=== PATIENT | male | born 1995 | race Two or more races ===

== ENCOUNTER 2017-12-28 16:33 | Emergency (ER) | payer OTHER ==
[~2017-12-28 16:33] MED LIST: ALBU8.5H12 IH; CIPHCO OS; HYDR1TAB PO; NO ROUTINE MEDS; NO RTN MEDS; TRIA15CR40 TP
[2017-12-28] MEDS ORDERED: OXYC-865 PO (16:39)
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
[2017-12-28] MEDS ORDERED: NS(*) 0.9% 1000 ML BAG 1,000 ML IV ONE (17:20)
[2017-12-28 17:47] LABS: PLATELET COUNT, AUTOMATED 217 K/uL (150-450)
[2017-12-28 17:56] LABS: INR 1.12
--- NOTE | 2017-12-28 19:13 | RADIOLOGY IMAGING REPORT ---
FACILITY: [facility] - [place] PATIENT NAME: Roger Chirinos : 1995 MR: [id number] V: [id number] EXAM DATE: ORDERING PHYSICIAN: MANUEL PAIGE TECHNOLOGIST: Location: [facility] - [place] Patient: Roger Chirinos : 1995 Visit/Account:[id number] Date of Sevice: 12/28/2017 CT Head without contrast and CT facial bones Indication: Headache. History of brain should face on 12/10/2017. Comparison: None available Technique: CT head: Axial CT images were obtained through the brain from the skull base to the verte x without administration of IV contrast. Reformatted coronal and sagittal images were also obtained. Technique: CT facial bones: Axial CT images are obtained through the facial bones. Reformatted vega l and sagittal images were reviewed. One of the following dose optimization techniques was utilized in the performance of this exam: autom ated exposure control; adjustment of the mA and/or kV according to the patient's size; or use of an i terative reconstruction technique. Specific details can be referenced in the facility's radiology CT exam operational policy. FINDINGS: CT head: No intracranial bleed, midline shift, mass affect, extra axial fluid collection or hydrocephalus. No abnormal density. Nuñez/white matter differentiation appears normal. There is nondisplaced fracture of the right and left nasal bone and the anterior medial left maxillary sinus. There is some fluid and mucosal thickening seen in the left maxillary sinus. No other discrete fractures. There is mucosal th ickening seen in the rest of the sinuses. Mastoid air cells are clear. CT facial bones: There is a nondisplaced fracture of the bilateral nasal bone. There is also nondisplaced fracture the anterior medial aspect of the left maxillary sinus. This appears to extend up to the anterior inferi or left orbital wall which shows minimally depressed fracture without appreciable herniation. The fra cture also extends to the posterior lateral aspect of the left maxillary sinus. No other discrete fra ctures. No bony lesions. Temporomandibular joints are intact and symmetric. The left maxilla sinus do es show fluid and mucosal thickening. The remaining sinuses do show some mucosal thickening as well. The mastoid air cells are clear. The right orbit is intact. The soft tissues of the orbits are symmet christopher without focal abnormality. Both ostiomeatal complexes are obscured by the mucosal thickening. The surrounding soft tissues are unremarkable. IMPRESSION: 1. No acute intracranial abnormality. 2. Nondisplaced fracture of the bilateral nasal bone. There is also nondisplaced fracture the anterio r medial aspect of the left maxillary sinus. This appears to extend up to the anterior inferior left orbital wall which shows minimally depressed fracture without appreciable herniation. The fracture al so extends to the posterior lateral aspect of the left maxillary sinus. 3. Sinus disease. There is also some fluid in the left maxillary sinus most likely from the fractures . CT Cervical Spine Indication: Trauma to face. 3 branch of the face. Comparison: None available. Technique: Axial CT imaging of the cervical spine was performed. 2-D sagittal and coronal CT reforma ts were also obtained. One of the following dose optimization techniques was utilized in the performance of this exam: autom ated exposure control; adjustment of the mA and/or kV according to the patient's size; or use of an i terative reconstruction technique. Specific details can be referenced in the facility's radiology CT exam operational policy. Findings: The vertebral bodies are aligned. No fracture or facet dislocation. No bony lesions or degenerative c hanges. Endplates are maintained. No obvious disc herniation. Prevertebral soft tissues and surroundi ng soft tissues are unremarkable. Lung apices are clear. Impression: 1. No acute osseous or acute alignment abnormality of the cervical spine Report Dictated By: Adalberto Gil at 12/28/2017 6:54 PM Report E Signed By: Adalberto Gil at 12/28/2017 7:07 PM WSN:[id number]
--- NOTE | 2017-12-28 19:13 | RADIOLOGY IMAGING REPORT ---
FACILITY: [facility] PATIENT NAME: Roger Chirinos : 1995 MR: [id number] V: [id number] EXAM DATE: ORDERING PHYSICIAN: MANUEL PAIGE TECHNOLOGIST: Location: [facility] Patient: Roger Chirinos : 1995 Visit/Account:[id number] Date of Sevice: 12/28/2017 CT Head without contrast and CT facial bones Indication: Headache. History of brain should face on 12/10/2017. Comparison: None available Technique: CT head: Axial CT images were obtained through the brain from the skull base to the verte x without administration of IV contrast. Reformatted coronal and sagittal images were also obtained. Technique: CT facial bones: Axial CT images are obtained through the facial bones. Reformatted vega l and sagittal images were reviewed. One of the following dose optimization techniques was utilized in the performance of this exam: autom ated exposure control; adjustment of the mA and/or kV according to the patient's size; or use of an i terative reconstruction technique. Specific details can be referenced in the facility's radiology CT exam operational policy. FINDINGS: CT head: No intracranial bleed, midline shift, mass affect, extra axial fluid collection or hydrocephalus. No abnormal density. Nuñez/white matter differentiation appears normal. There is nondisplaced fracture of the right and left nasal bone and the anterior medial left maxillary sinus. There is some fluid and mucosal thickening seen in the left maxillary sinus. No other discrete fractures. There is mucosal th ickening seen in the rest of the sinuses. Mastoid air cells are clear. CT facial bones: There is a nondisplaced fracture of the bilateral nasal bone. There is also nondisplaced fracture the anterior medial aspect of the left maxillary sinus. This appears to extend up to the anterior inferi or left orbital wall which shows minimally depressed fracture without appreciable herniation. The fra cture also extends to the posterior lateral aspect of the left maxillary sinus. No other discrete fra ctures. No bony lesions. Temporomandibular joints are intact and symmetric. The left maxilla sinus do es show fluid and mucosal thickening. The remaining sinuses do show some mucosal thickening as well. The mastoid air cells are clear. The right orbit is intact. The soft tissues of the orbits are symmet christopher without focal abnormality. Both ostiomeatal complexes are obscured by the mucosal thickening. The surrounding soft tissues are unremarkable. IMPRESSION: 1. No acute intracranial abnormality. 2. Nondisplaced fracture of the bilateral nasal bone. There is also nondisplaced fracture the anterio r medial aspect of the left maxillary sinus. This appears to extend up to the anterior inferior left orbital wall which shows minimally depressed fracture without appreciable herniation. The fracture al so extends to the posterior lateral aspect of the left maxillary sinus. 3. Sinus disease. There is also some fluid in the left maxillary sinus most likely from the fractures . CT Cervical Spine Indication: Trauma to face. 3 branch of the face. Comparison: None available. Technique: Axial CT imaging of the cervical spine was performed. 2-D sagittal and coronal CT reforma ts were also obtained. One of the following dose optimization techniques was utilized in the performance of this exam: autom ated exposure control; adjustment of the mA and/or kV according to the patient's size; or use of an i terative reconstruction technique. Specific details can be referenced in the facility's radiology CT exam operational policy. Findings: The vertebral bodies are aligned. No fracture or facet dislocation. No bony lesions or degenerative c hanges. Endplates are maintained. No obvious disc herniation. Prevertebral soft tissues and surroundi ng soft tissues are unremarkable. Lung apices are clear. Impression: 1. No acute osseous or acute alignment abnormality of the cervical spine Report Dictated By: Adalberto Gil at 12/28/2017 6:54 PM Report E Signed By: Adalberto Gil at 12/28/2017 7:07 PM WSN:[id number]
--- NOTE | 2017-12-28 19:14 | RADIOLOGY IMAGING REPORT ---
FACILITY: [facility] PATIENT NAME: Roger Chirinos : 1995 MR: [id number] V: [id number] EXAM DATE: ORDERING PHYSICIAN: MANUEL PAIGE TECHNOLOGIST: Location: [facility] [place] Patient: Roger Chirinos : 1995 Visit/Account:[id number] Date of Sevice: 12/28/2017 CT Head without contrast and CT facial bones Indication: Headache. History of brain should face on 12/10/2017. Comparison: None available Technique: CT head: Axial CT images were obtained through the brain from the skull base to the verte x without administration of IV contrast. Reformatted coronal and sagittal images were also obtained. Technique: CT facial bones: Axial CT images are obtained through the facial bones. Reformatted vega l and sagittal images were reviewed. One of the following dose optimization techniques was utilized in the performance of this exam: autom ated exposure control; adjustment of the mA and/or kV according to the patient's size; or use of an i terative reconstruction technique. Specific details can be referenced in the facility's radiology CT exam operational policy. FINDINGS: CT head: No intracranial bleed, midline shift, mass affect, extra axial fluid collection or hydrocephalus. No abnormal density. Nuñez/white matter differentiation appears normal. There is nondisplaced fracture of the right and left nasal bone and the anterior medial left maxillary sinus. There is some fluid and mucosal thickening seen in the left maxillary sinus. No other discrete fractures. There is mucosal th ickening seen in the rest of the sinuses. Mastoid air cells are clear. CT facial bones: There is a nondisplaced fracture of the bilateral nasal bone. There is also nondisplaced fracture the anterior medial aspect of the left maxillary sinus. This appears to extend up to the anterior inferi or left orbital wall which shows minimally depressed fracture without appreciable herniation. The fra cture also extends to the posterior lateral aspect of the left maxillary sinus. No other discrete fra ctures. No bony lesions. Temporomandibular joints are intact and symmetric. The left maxilla sinus do es show fluid and mucosal thickening. The remaining sinuses do show some mucosal thickening as well. The mastoid air cells are clear. The right orbit is intact. The soft tissues of the orbits are symmet christopher without focal abnormality. Both ostiomeatal complexes are obscured by the mucosal thickening. The surrounding soft tissues are unremarkable. IMPRESSION: 1. No acute intracranial abnormality. 2. Nondisplaced fracture of the bilateral nasal bone. There is also nondisplaced fracture the anterio r medial aspect of the left maxillary sinus. This appears to extend up to the anterior inferior left orbital wall which shows minimally depressed fracture without appreciable herniation. The fracture al so extends to the posterior lateral aspect of the left maxillary sinus. 3. Sinus disease. There is also some fluid in the left maxillary sinus most likely from the fractures . CT Cervical Spine Indication: Trauma to face. 3 branch of the face. Comparison: None available. Technique: Axial CT imaging of the cervical spine was performed. 2-D sagittal and coronal CT reforma ts were also obtained. One of the following dose optimization techniques was utilized in the performance of this exam: autom ated exposure control; adjustment of the mA and/or kV according to the patient's size; or use of an i terative reconstruction technique. Specific details can be referenced in the facility's radiology CT exam operational policy. Findings: The vertebral bodies are aligned. No fracture or facet dislocation. No bony lesions or degenerative c hanges. Endplates are maintained. No obvious disc herniation. Prevertebral soft tissues and surroundi ng soft tissues are unremarkable. Lung apices are clear. Impression: 1. No acute osseous or acute alignment abnormality of the cervical spine Report Dictated By: Adalberto Gil at 12/28/2017 6:54 PM Report E Signed By: Adalberto Gil at 12/28/2017 7:07 PM WSN:[id number]
[2017-12-28] MEDS ORDERED: KETOROLAC 15 MG/ML VIAL IVP ONE (19:25)
[2017-12-28] MEDS ORDERED: ONDANSETRON 4 MG/2 ML VIAL IVP ONE (19:25)
[2017-12-28] MEDS ORDERED: ORPHENADRINE 60MG/2ML INJ IVP ONE (19:25)
[2017-12-28] MEDS ORDERED: KET10 PO (19:54)
[2017-12-28] MEDS ORDERED: KETOROLAC TROM 10 MG TAB TH PO ONE (19:55)
[2017-12-28 19:57] VITALS: BP 101/63
== END 2017-12-28 20:11 | disposition home or self-care (01) ==
LOC: ER 16:35
DX: F07.81 Postconcussional syndrome (principal); S02.401D Maxillary fracture, unspecified side, subsequent encounter for fracture with routine healing; S02.2XXD Fracture of nasal bones, subsequent encounter for fracture with routine healing
CPT/HCPCS: 70450; 70486; 72125; 85025; 85610; 85730; 96361; 96374; 96375; 99284; J1885; J2360; J2405; J7030; 82040; 82247; 82310; 82374; 82435; 82565; 82947; 84075; 84132; 84155; 84295; 84450; 84460; 84520

== ENCOUNTER 2018-02-24 17:46 | Emergency (ER) | payer OTHER ==
[~2018-02-24 17:46] MED LIST changes: +KET10 PO; +OXYC-865 PO
--- NOTE | 2018-02-24 17:56 | ER Report ---
History and Physical Time Seen By MD: 17:56 HPI/ROS CHIEF COMPLAINT: Laceration HISTORY OF PRESENT ILLNESS: This is a 22-year-old male presents to the emergency department for laceration to the left wrist. 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 Patient has a about a 2 cm laceration to the left distal ulnar. Bleeding is controlled. Patient's tetanus is not up-to -date. No other complaints. REVIEW OF SYSTEMS: Respiratory: No cough, no dyspnea. Cardiovascular: No chest pain, no palpitations. Gastrointestinal: No vomiting, no abdominal pain. Musculoskeletal: No back pain. Integument rate: As above. Allergies: Coded Allergies: No Known Allergies (Verified Allergy, Mild, 07/04/15) Home Meds Discontinued Reported Medications Oxycodone Hcl/Acetaminophen (PERCOCET 5-325 MG TABLET) 1 Each Tablet, 1 EACH PO , TAB 12/28/17 Discontinued Scripts Ketorolac Tromethamine (KETOROLAC TROMETHAMINE) 10 Mg Tab, 10 MG PO Q6H, #20 TAB Prov:MANUEL PAIGE ADVERTISING SALES MANAGER 12/28/17 Past Medical/Surgical History The patient has a past medical and surgical history of nasal fracture, left cheek bone and orbital fracture, tonsillectomy. Reviewed Nurses Notes: Yes Hx Smoking: No Smoking Status: Never Smoker Exposure to Second Hand Smoke?: No Constitutional Vital Sign - Last 24 Hours 02/24/18 02/24/18 18:02 18:57 Temp 98.5 Pulse 76 71 Resp 20 20 B/P (MAP) 129/79 123/79 (94) Pulse Ox 96 97 O2 Delivery Room Air Physical Exam General Appearance: The patient is alert, has no immediate need for airway protection and no current signs of toxicity. Eyes: Pupils equal and round no injection. Respiratory: Chest is non tender, lungs are clear to auscultation. Cardiac: regular rate and rhythm Gastrointestinal: Abdomen is soft and non tender, no masses, bowel sounds normal. Musculoskeletal: Neck: Neck is supple and non tender. Extremities have full range of motion and are non tender. Skin: 3.5 cm laceration, distal forearm to the lateral aspect of the left wrist , bleeding controlled no deep tissue involvement. DIFFERENTIAL DIAGNOSIS: After history and physical exam differential diagnosis was considered for laceration. Medical Decision Making ED Course/Re-evaluation ED Course The patient was admitted to room. A history physical were obtained. Differential diagnoses were considered. The wound was anesthetized and irrigated and repaired as noted below. Patient tolerated well. Patient was instructed to follow-up in about 7 days in the emergency department or follow- up with his primary care provider to have his sutures removed. Monitor for signs of infection such as redness, swelling or drainage. Patient had no other questions or concerns at this time and discharged home. Tetanus was updated. 8 simple interrupted sutures, 5-0 Ethilon. 3.5 cm laceration. Procedure: Laceration repair. Verbal consent was obtained from the patient. The 3.5 cm laceration, distal forearm to the lateral aspect of the left wrist was anesthetized in the usual fashion. The wound was scrubbed, draped and explored to its base with a gloved finger. There were no deep structures involved. No tendon injury was identified. The wound was repaired with 8 simple interrupted sutures, 5-0 Ethilon. The wound repair was simple. The procedure was performed by myself. Decision to Disposition Date: Feb 24, 2018 Decision to Disposition Time: 18:47 Depart Departure Latest Vital Signs Vital Signs Date Time Temp Pulse Resp B/P (MAP) Pulse Ox O2 Delivery O2 Flow Rate FiO2 02/24/18 18:57 71 20 123/79 (94) 97 02/24/18 18:02 98.5 Room Air Impression: Primary Impression: Laceration of left wrist Condition: Improved Disposition: HOME OR SELF-CARE Referrals: PATRICIA GRIGSBY MD (PCP) Patient Instructions: Acute Wound Care (ED), Laceration (ED) Additional Instructions: Monitor for signs of infection such as redness, swelling and drainage. Keep the dressing on for at least 12 hours. Change the dressing as needed. Apply antibiotic ointment to the wound, keep it clean and dry. Return to the emergency department or follow-up with your primary care provider in 7 days to have the sutures removed. Drink plenty of water. Get plenty of rest. Take ibuprofen or Tylenol for pain. Return to the ER for any other concerns or worsening symptoms. Problem Qualifiers Primary Impression: Laceration of left wrist Encounter type: initial encounter Qualified Codes: S61.512A - Laceration without foreign body of left wrist, initial encounter JAYSON KOENIG ADVERTISING SALES MANAGER-BC Feb 24, 2018 17:56
[2018-02-24] MEDS ORDERED: DIPHTH/TETANUS/ACEL. PERTUSSIS IM ONLY ONE (18:20)
[2018-02-24 18:57] VITALS: BP 123/79
== END 2018-02-24 18:58 | disposition home or self-care (01) ==
LOC: ER 18:02
DX: S61.512A Laceration without foreign body of left wrist, initial encounter (principal); W26.8XXA Contact with other sharp object(s), not elsewhere classified, initial encounter
CPT/HCPCS: 90471; 90715; 99283